=== PATIENT | female | born 1970 | race Caucasian/White ===

== ENCOUNTER 2018-09-14 09:16 | Outpatient (CLI) | payer OTHER | END 2018-09-14 10:45 | disposition home or self-care (01) | LOC: MRD 09:16 → EDSTATUS 09-18 11:50 | PROVIDERS: ATTEND Surgery | DX: Z01.818 Encounter for other preprocedural examination (principal) | CPT/HCPCS: 71045; 93005 ==

== ENCOUNTER 2018-09-26 07:35 | Day surgery (SDC) | payer OTHER ==
[~2018-09-26] VITALS: Ht 152.4 cm; Wt 61.2 kg
[2018-09-26] MEDS ORDERED: CEFAZOLIN SODIUM 1 GM/D5W PM 50 ML IV SCH (08:30)
[2018-09-26] MEDS ORDERED: ATEN25TA2 PO (08:45)
[2018-09-26] MEDS ORDERED: LEVEMIR SUBQ (08:45)
[2018-09-26] MEDS ORDERED: INSU10SU6 SUBQ (08:45)
[2018-09-26] MEDS ORDERED: BUPIVACAINE-MPF/EPI 0.25% 30 ML VIAL INJ ONE (09:17)
[2018-09-26] MEDS ORDERED: LIDOCAINE JELLY 2% 30 ML TUBE TP ONE (09:17)
[2018-09-26] MEDS ORDERED: PROPOFOL 200 MG/20 ML VIAL IV ONE (10:08)
[2018-09-26] MEDS ORDERED: SEVOFLURANE 250 ML BTL INH ONE (10:08)
[2018-09-26] MEDS ORDERED: LIDOCAINE 2% 100 MG/5 ML SYR IVP ONE (10:08)
[2018-09-26] MEDS ORDERED: LIDOCAINE 2% 100 MG/5 ML UJET TP ONE (10:15)
[2018-09-26] MEDS ORDERED: fentaNYL 0.05 MG/ML VIAL ONE (10:19)
[2018-09-26] MEDS ORDERED: MIDAZOLAM 2 MG/2 ML VIAL ONE (10:20)
[2018-09-26] MEDS ORDERED: HYDROmorphone 1 MG/ML AMP IVP PRN ×2 (10:35→11:30)
[2018-09-26] MEDS ORDERED: ONDANSETRON 4 MG/2 ML VIAL IVP PRN (10:35)
[2018-09-26] MEDS ORDERED: NACL 0.9% 1,000 ML IV SCH (11:28)
[2018-09-26] MEDS ORDERED: ONDANSETRON 4 MG/2 ML VIAL IV PRN (11:30)
[2018-09-26] MEDS ORDERED: HYDROcodone/APAP 5/325 MG 1 TAB TAB PO PRN (11:30)
[2018-09-26] MEDS ORDERED: MORPHINE SULFATE 4 MG/ML SYR IV PRN (11:30)
[2018-09-26] MEDS: HYDROmorphone PFS 2 MG/ML SYR ONE ×3 (11:40→12:00)
== END 2018-09-26 14:05 | disposition home or self-care (01) ==
LOC: MDS 07:35 → MMU 07:41 → MDS 14:05
PROVIDERS: ATTEND Surgery
DX: K64.4 Residual hemorrhoidal skin tags (principal); K64.8 Other hemorrhoids; I10 Essential (primary) hypertension; E11.9 Type 2 diabetes mellitus without complications; Z98.890 Other specified postprocedural states; Z98.51 Tubal ligation status; Z79.4 Long term (current) use of insulin; Z79.899 Other long term (current) drug therapy
CPT/HCPCS: 46260; 81025; 82948; 88304; J0690; J1170; J2001; J2250; J2704; J3010; J3490; J7030